=== PATIENT | female | born 1965 | race African-American/Black ===

== ENCOUNTER 2019-12-01 15:34 | Emergency (ER) | payer OTHER ==
[~2019-12-01] VITALS: Ht 162.6 cm; Wt 89.8 kg
[~2019-12-01 15:34] MED LIST: NORCO 5-325 TA1 EACH PO
[2019-12-01] MEDS ORDERED: VITAMIN D22000 UNIT PO (15:50)
[2019-12-01] MEDS ORDERED: TESSALON PERLE100 MG PO (16:21)
[2019-12-01 16:30] VITALS: BP 128/88
--- NOTE | 2019-12-02 08:15 | EKG ---
[facility] [place] [address] ELECTROCARDIOGRAM REPORT Name: MEGAN MEDRANO Room #: DEP [facility]#: [id number] Admission: 12/01/19 Attend Phys: Discharge: 12/01/19 Date of : 67 Report #: [id number] THIS REPORT FOR: cc: Marina Raya MD, Melanie MD Couchonnal,Missael Jose MD ~ THIS REPORT FOR: //name// [facility] ED Test Date: 2019-12-01 Test Time: 15:43:51 Pat Name: MEGAN MEDRANO Department: Room: Gender: Make Up Man: [facility] : 1965 Requested By: Aaron Wood Order Number: [id number] MD: Missael Lin Measurements Intervals [place] Rate: 77 P: 27 CA: 133 QRS: -2 QRSD: 94 T: -1 QT: 386 QTc: 437 Interpretive Statements Sinus rhythm Abnormal R-wave progression, early transition Left ventricular hypertrophy No previous ECG available for comparison Electronically Signed On 12-02-2019 8:14:41 CDT by Missael Lin [email or web address] <ELECTRONICALLY SIGNED> By: Missael Lin MD 12/02/19 0814 [id number] [id number] Missael Lin MD /EPI
== END 2019-12-01 16:30 | disposition home or self-care (01) ==
LOC: ER 15:34
DX: J06.9 Acute upper respiratory infection, unspecified (principal); J02.9 Acute pharyngitis, unspecified

== ENCOUNTER 2019-12-03 17:13 | Emergency (ER) | payer OTHER ==
[~2019-12-03] VITALS: Ht 162.6 cm; Wt 89.8 kg
[~2019-12-03 17:13] MED LIST changes: +TESSALON PERLE100 MG PO; +VITAMIN D22000 UNIT PO
[2019-12-03 17:14] VITALS: BP 182/97
[2019-12-03] MEDS ORDERED: IBUPROFEN 600600 M1 PO (17:53)
[2019-12-03] MEDS ORDERED: CLARITIN-D 121 EAC1 PO (17:53)
== END 2019-12-03 18:05 | disposition home or self-care (01) ==
LOC: ER 17:13
DX: J06.9 Acute upper respiratory infection, unspecified (principal); F41.9 Anxiety disorder, unspecified; R20.2 Paresthesia of skin; Z79.899 Other long term (current) drug therapy

== ENCOUNTER 2020-08-31 12:45 | Emergency (ER) | payer OTHER ==
[~2020-08-31] VITALS: Ht 162.6 cm; Wt 89.8 kg
--- NOTE | ~2020-08-31 | EMS ---
[address] [address] EMS Patient Care Report Name: MEGAN MEDRANO Room #: DEP [facility]MAR Moe#: [id number] Admission: 08/31/20 Attend Phys: Discharge: 08/31/20 Date of : 67 Report #: [id number] THIS REPORT FOR: //name// Report Transmitted: 08/31/2020 21:56 EMS Care Summary [facility] Incident [id number] @ 08/31/2020 12:01 Incident Location [address] [place] [id number] Patient MEGAN MEDRANO Female, 55 Years 1965 Patient Address [address] [place] [address] Patient History None Reported, Patient Allergies Penicillin allergy, Patient Medications None Reported, Chief Complaint Nausea/Vomiting and abdominal pain Disposition Transported No Lights/[place] Dispatch Reason Sick Person Transported To [facility] Narrative Dispatched for nausea and vomiting. Arrived to find the 55 year old female patient AO x4, GCS 15 with normal respirations laying on her bed. The patient stated she had tested positive for Covid-19 had been on treatment for it, and had completed the recommended quarantine period. The patient stated a chief complaint of abdominal pain and nausea with one episode of vomiting prior to [facility] [address] [place] [address] EMS Patient Care Report Name: MEGAN MEDRANO Room #: DEP OMAR Moe#: [id number] Admission: 08/31/20 Attend Phys: Discharge: 08/31/20 Date of : 67 Report #: [id number] arrival. The patient stated a desire to be transported to [facility]. The patient was assisted to the stretcher and vitals were stable. The patient was secured on the stretcher inside the ambulance and transport was initiated. During transport IV access was obtained and the patient denied any change in condition. Upon arrival the patient was escorted on the stretcher to the ED and patient care was transferred to [facility] via verbal report. Initial Vitals @12:26P: 78,R: 26,BP: 121/90,Pain: 8/10,GCS: 15,SpO2: 99,Revised Trauma: 12, @12:19P: 76,R: 18,BP: 141/87,Pain: 8/10,GCS: 15,SpO2: 98,Revised Trauma: 12, @12:10P: 76,R: 20,BP: 135/86,Pain: 8/10,GCS: 15,SpO2: 90,Revised Trauma: 12, Assessments @12:08MENTAL:No Abnormalities,SKIN:No Abnormalities,HEENT:Head/Face: No Abnormalities,Eyes: No Abnormalities,Neck/Airway: No Abnormalities,LUNG SOUNDS:General: Vomiting,General: Nausea,General: Other,Left Lower: Other,Left Lower: Tenderness,Right Lower: Tenderness,Right Lower: Other,ABDOMEN:General: Vomiting,General: Nausea,General: Other,Left Lower: Other,Left Lower: Tenderness,Right Lower: Tenderness,Right Lower: Other,PELVIS//GI:No Abnormalities,EXTREMITIES:Left Arm: No Abnormalities,Right Arm: No Abnormalities,Left Leg: No Abnormalities,Right Leg: No Abnormalities,PULSE:NEURO:No Abnormalities,@12:30MENTAL:No Abnormalities,SKIN:No Abnormalities,HEENT:Head/Face: No Abnormalities,Eyes: No Abnormalities,Neck/Airway: No Abnormalities,LUNG SOUNDS:General: Nausea,General: Vomiting,General: Other,Left Lower: Other,Right Lower: Other,Right Lower: Tenderness,Left Lower: Tenderness,ABDOMEN:General: Nausea,General: Vomiting,General: Other,Left Lower: Other,Right Lower: Other,Right Lower: Tenderness,Left Lower: Tenderness,PELVIS//GI:No Abnormalities,EXTREMITIES:Capillary Refill: Left Upper: < 2 Sec,Left Arm: No Abnormalities,Right Arm: No Abnormalities,Left Leg: No Abnormalities,Right Leg: No Abnormalities,PULSE:Radial: 2+ Normal,NEURO:No Abnormalities, Impression COVID-19 - Confirmed by testing Procedures @12:08ALS AssessmentResponse: UnchangedSucceeded@12:30ALS AssessmentResponse: UnchangedSucceeded@12:28Saline Lock 10cc (20 ga) Site: Antecubital-LeftResponse: UnchangedSucceeded Timeline 11:58,Call Received 11:58,Psap Call 12:01,Dispatched 12:01,En Route [address] [address] EMS Patient Care Report Name: MARCELA,MEGAN Room #: NADYA Moe#: [id number] Admission: 08/31/20 Attend Phys: Discharge: 08/31/20 Date of : 67 Report #: [id number] 12:06,On Scene 12:08,At Patient 12:08,ALS Assessment,Response: UnchangedSucceeded, 12:10,BP: 135/86 M,PULSE: 76,RR: 20 R,SPO2: 90 Ox,ETCO2: ,BG: ,PAIN: 8,GCS: 15, 12:19,BP: 141/87 M,PULSE: 76,RR: 18 R,SPO2: 98 Ox,ETCO2: ,BG: ,PAIN: 8,GCS: 15, 12:20,Depart Scene 12:26,BP: 121/90 M,PULSE: 78,RR: 26 R,SPO2: 99 Ox,ETCO2: ,BG: ,PAIN: 8,GCS: 15, 12:28,Saline Lock 10cc 20 ga Site: Antecubital-Left,Response: UnchangedSucceeded, 12:30,ALS Assessment,Response: UnchangedSucceeded, 12:40,At Destination 13:39,Call Closed Disclaimer v1.1 Copyright 2020 [employer] This EMS Care Summary contains data elements from the applicable legal record (which may be displayed differently). It is designed to provide pertinent information for the following purposes: continuity of care, clinical quality, and state data reporting. The complete legal record is available to ED staff and administrators of the receiving hospital in [facility]'s Patient Tracker. All data is provided "as is."
[~2020-08-31 12:45] MED LIST changes: +CLARITIN-D 121 EAC1 PO; +IBUPROFEN 600600 M1 PO
[2020-08-31 12:57] LABS: HEMATOCRIT 36.1 % (37.0-47.0); HEMOGLOBIN 11.3 gm/dL (12.0-15.0); MCHC 31.2 g/dL (28.0-37.0); MCV 83.2 fL (80.0-100.0); PLATELET COUNT 383 thou/uL (150-400); RBC 4.34 mil/uL (4.20-5.00); RDW 12.6 % (10.5-14.5); WBC 14.4 thou/uL (4.0-11.0)
[2020-08-31 13:08] LABS: CALCIUM 9.2 mg/dL (8.5-10.1); CREATININE 0.9 mg/dL (0.6-1.0); POTASSIUM 3.4 mmol/L (3.5-5.1)
[2020-08-31 13:14] LABS: ALBUMIN 3.4 g/dL (3.4-5.0); TOTAL BILIRUBIN 0.4 mg/dL (0.2-1.0); TOTAL PROTEIN 7.5 g/dL (6.4-8.2)
[2020-08-31 13:30] LABS: ABSOLUTE NEUTROPHILS 10.9 thou/uL (1.4-8.2)
[2020-08-31 15:41] LABS: URINE BILIRUBIN NEGATIVE (Negative); URINE BLOOD NEGATIVE (Negative); URINE CLARITY CLEAR; URINE COLOR YELLOW; URINE GLUCOSE-RANDOM* NEGATIVE (Negative); URINE KETONES NEGATIVE (Negative); URINE LEUKOCYTES-REFLEX NEGATIVE (Negative); URINE NITRITE-REFLEX NEGATIVE (Negative); URINE PROTEIN (DIPSTICK) TRACE (Negative); URINE UROBILINOGEN 0.2 E.U./dl (0.2-1.0)
[2020-08-31] MEDS ORDERED: NORCO 5-325 TA1 EAC2 PO (16:46)
[2020-08-31] MEDS ORDERED: ZPAK PO (16:47)
[2020-08-31 17:45] VITALS: BP 139/78
== END 2020-08-31 17:46 | disposition home or self-care (01) ==
LOC: ER 12:45
PROVIDERS: Physician Assistant
DX: U07.1 COVID-19 (principal); D25.9 Leiomyoma of uterus, unspecified; J18.9 Pneumonia, unspecified organism; Z88.0 Allergy status to penicillin

== ENCOUNTER 2020-09-26 07:32 | Emergency (ER) | payer OTHER ==
[~2020-09-26] VITALS: Ht 162.6 cm; Wt 86.2 kg
[~2020-09-26 07:32] MED LIST changes: +NORCO 5-325 TA1 EAC2 PO; +ZPAK PO
[2020-09-26] MEDS ORDERED: NAPROSYN500 MG PO (10:20)
[2020-09-26 10:21] VITALS: BP 128/79
== END 2020-09-26 10:30 | disposition home or self-care (01) ==
LOC: ER 07:32
DX: S06.0X0A Concussion without loss of consciousness, initial encounter (principal); R11.2 Nausea with vomiting, unspecified; M54.2 Cervicalgia; Z88.0 Allergy status to penicillin; W00.0XXA Fall on same level due to ice and snow, initial encounter; Y93.89 Activity, other specified; Y92.89 Other specified places as the place of occurrence of the external cause; Y99.8 Other external cause status